=== PATIENT | female | born 1965 | race Caucasian/White ===

== ENCOUNTER 2017-12-08 10:54 | Day surgery (SDC) | payer MEDICARE, OTHER ==
[~2017-12-08] VITALS: Ht 172.7 cm; Wt 170.2 kg
[~2017-12-08 10:54] MED LIST: ALBU3IS; ALBU90OI; ALBU90OI6 INH; ATOR10 PO; ATOR40TA PO; B-12500 MCG PO; BENZ100A PO; BISA10S PO; BUDE6HFA; BUDE6HFA INH; Bactrim Ds Tab1 EACH PO; Coumadin10 MG; Coumadin7.5 MG PO; DICL25ER TOP; DOCU100 PO; FOLI1 PO; FURO20 PO; FURO40; GABA300; GABA300 PO; HYDCHL25 PO; Isosorbide Mono30 MG PO; LISI20 PO; METF500; METO25 PO; METO50; Micro-K10 MEQ PO; POTCHL10ER PO; Prednisone20 MG PO; QVAR7.3 G1 IH; ROPI.25; TIOT18; TIOT18 INH; TORS10; TRAM50 PO; TRAZ50 PO; VITB2 PO; Veetids 500500 MG PO; WARF10 PO; WARF7.5 PO; [UNRECOGNIZED DRUG - REMARK]
== END 2017-12-08 12:57 | disposition home or self-care (01) ==
LOC: ORSCSDS 10:54
PROVIDERS: Orthopaedic Surgery
PROC: 01N50ZZ Release Median Nerve, Open Approach (ICD-10-PCS; principal; 2017-12-08 12:30)
DX: G56.03 Carpal tunnel syndrome, bilateral upper limbs (principal); I48.0 Paroxysmal atrial fibrillation; I25.10 Atherosclerotic heart disease of native coronary artery without angina pectoris; J44.9 Chronic obstructive pulmonary disease, unspecified; G47.33 Obstructive sleep apnea (adult) (pediatric); Z87.891 Personal history of nicotine dependence; E11.9 Type 2 diabetes mellitus without complications; E66.01 Morbid (severe) obesity due to excess calories; Z68.43 Body mass index [BMI] 50.0-59.9, adult; Z79.01 Long term (current) use of anticoagulants; Z79.899 Other long term (current) drug therapy
CPT/HCPCS: 82947; J0690; J1885; J2250; J3010; J7120

== ENCOUNTER 2018-03-30 10:06 | Emergency (ER) | payer MEDICARE, OTHER ==
[~2018-03-30] VITALS: Ht 172.7 cm; Wt 172.4 kg
[2018-03-30] MEDS ORDERED: METF500C PO (10:33)
[2018-03-30] MEDS ORDERED: Ultram50 MG PO (11:13)
[2018-03-30] MEDS ORDERED: Crutch1 EACH MISC (11:15)
== END 2018-03-30 11:23 | disposition home or self-care (01) ==
LOC: ER 10:06
DX: S80.02XA Contusion of left knee, initial encounter (principal); J45.909 Unspecified asthma, uncomplicated; I11.0 Hypertensive heart disease with heart failure; I50.30 Unspecified diastolic (congestive) heart failure; I48.91 Unspecified atrial fibrillation; Z79.899 Other long term (current) drug therapy; Z79.01 Long term (current) use of anticoagulants; Z79.84 Long term (current) use of oral hypoglycemic drugs; Z79.51 Long term (current) use of inhaled steroids; Z87.891 Personal history of nicotine dependence; W01.0XXA Fall on same level from slipping, tripping and stumbling without subsequent striking against object, initial encounter
CPT/HCPCS: 73564; 99283

== ENCOUNTER → 2020-05-10 | Outpatient (CLI) | payer MEDICARE, OTHER ==
[~2020-05-10] MED LIST changes: +B-1100 M1 PO; -Coumadin10 MG; +Crutch1 EACH MISC; -FURO40; +FURO40 PO; -GABA300; +METF500C PO; -METO50; +METO50 PO; +Ultram50 MG PO; +VICTOZA 2-0.6 MG/0.1 SC; +WARF6 PO
== END | disposition home or self-care (01) ==
LOC: LAB 08:30 → LAB SHORT 08:30
DX: S91.301D Unspecified open wound, right foot, subsequent encounter (principal)
CPT/HCPCS: 87070; 87205

== ENCOUNTER → 2021-04-26 | Outpatient (CLI) | payer MEDICARE, OTHER | END | disposition home or self-care (01) | LOC: LAB 15:56 → LAB SHORT 15:56 | DX: E11.621 Type 2 diabetes mellitus with foot ulcer (principal); L98.499 Non-pressure chronic ulcer of skin of other sites with unspecified severity | CPT/HCPCS: 87070; 87075; 87205 ==

== ENCOUNTER → 2021-12-24 | Outpatient (CLI) | payer MEDICARE, OTHER ==
[2021-12-25 12:44] LABS: Creatinine Urine 66.6 mg/dL (27.00-270.00); Microalbumin, Urine Quant. 11.6 mg/L (0.000-20.000); Protein, Urine Quantitative 16.7 mg/dL (0.0-11.9)
== END | disposition home or self-care (01) ==
LOC: LAB SHORT 16:30
PROVIDERS: Internal Medicine Nephrology
DX: N18.4 Chronic kidney disease, stage 4 (severe) (principal); D63.1 Anemia in chronic kidney disease; N25.81 Secondary hyperparathyroidism of renal origin; E55.9 Vitamin D deficiency, unspecified; E78.00 Pure hypercholesterolemia, unspecified; D50.9 Iron deficiency anemia, unspecified; D52.8 Other folate deficiency anemias; D51.8 Other vitamin B12 deficiency anemias; R76.9 Abnormal immunological finding in serum, unspecified; R94.5 Abnormal results of liver function studies; R94.6 Abnormal results of thyroid function studies
CPT/HCPCS: 81050; 82043; 82570; 84156

== ENCOUNTER 2022-04-18 08:14 | Inpatient (IN) | payer MEDICARE, OTHER ==
[~2022-04-18] VITALS: Ht 175.3 cm; Wt 156.3 kg
[~2022-04-18 08:14] MED LIST changes: +METO100 PO; -METO50 PO; -POTCHL10ER PO; +POTCHL20ER PO
[2022-04-18 08:58] LABS: BASOPHILS ABSOLUTE AUTO 0.02 K/mm3 (0.00-0.23); BASOPHILS PERCENT AUTO 0 % (0-2); EOSINOPHILS ABSOLUTE AUTO 0.03 K/mm3 (0.00-0.68); EOSINOPHILS PERCENT AUTO 0 % (0-6); Hemoglobin 11.3 g/dL (11.5-16.0); IMMATURE GRAN ABSOLUTE AUTO 0.06 K/mm3 (0.00-0.10); IMMATURE GRAN PERCENT AUTO 1 % (0-1); LYMPHOCYTES ABSOLUTE AUTO 0.44 K/mm3 (0.84-5.20); LYMPHOCYTES PERCENT AUTO 4 % (21-46); MONOCYTES ABSOLUTE AUTO 0.55 K/mm3 (0.16-1.47); MONOCYTES PERCENT AUTO 4 % (4-13); Mean Corpuscular HGB Conc 34.2 g/dL (31.5-36.5); Mean Corpuscular Volume 91 fL (80-100); Mean Platelet Volume 11.1 fL (9.1-12.4); NEUTROPHILS ABSOLUTE AUTO 11.42 K/mm3 (1.96-9.15); NEUTROPHILS PERCENT AUTO 91 % (41-73); Platelet Count 173 K/mm3 (150-400); RDW Coefficient Variation 14.6 % (11.7-14.2); RDW Standard Deviation 48.4 fL (35.1-46.3); Red Blood Cell Count 3.64 M/mm3 (3.80-5.20); White Blood Cell Count 12.52 K/mm3 (4.00-11.30)
[2022-04-18 09:20] LABS: Albumin, Blood 2.9 g/dL (3.4-5.0); Albumin/Globulin Ratio 0.7 (0.8-1.8); Bilirubin, Total 0.4 mg/dL (0.1-1.0); Bun/Creatinine Ratio 15.6 (12.0-20.0); Calcium, Blood 8.4 mg/dL (8.5-10.1); Creatinine, Blood 2.18 mg/dL (0.40-1.00); Globulin, Blood 4.2 g/dL (2.2-4.0); Potassium, Blood 4.6 mmol/L (3.5-5.5); Total Protein, Blood 7.1 g/dL (6.4-8.2)
[2022-04-18] MEDS ORDERED: ELIQUIS5 M2 PO (10:11)
[2022-04-18 11:34] LABS: Source, Urine Clean Catch
[2022-04-18 11:43] LABS: Appearance, Urine Clear (Clear); Bilirubin, Urine Neg (Neg); Blood, Urine Neg (Neg); Color, Urine Yellow (P-Yellow); Glucose Qualitative, Urine Neg (Neg); Ketones, Urine Neg (Neg); Leukocyte Esterase, Urine Neg (Neg); Nitrite, Urine Neg (Neg); Protein, Urine Neg (Neg); Urobilinogen, Urine NORM (Normal)
[2022-04-18 14:47] LABS: International Normalized Ratio 1.48; Prothrombin Time Results 15.1 Sec (9.7-11.5)
[2022-04-18 14:48] LABS: U Amphetamine Screen Not Detected; U Barbituate Screen Not Detected; U Benzodiazapine Screen Not Detected; U Buprenorphine Screen Not Detected; U Cannabinoids Screen Not Detected; U Cocaine Screen Not Detected; U Methadone Screen Not Detected; U Methamphetamine Screen Not Detected; U Opiates Screen Not Detected; U Oxycodone Screen Not Detected; U Phencyclidine Screen Not Detected; U Propoxyphene Screen Not Detected
[2022-04-18] MEDS ORDERED: LYRICA20 MG/1 ML PO (17:54)
--- NOTE | 2022-04-18 18:16 | NUR ---
ASSUMPTION OF CARE RECEIVED REPORT FROM TOMEKA KOENIG IN ED AT 1657, PATIENT ARRIVED TO UNIT AT 1737 VIA GURNEY. 5 PERSON TRANSFER TO BED. PATIENT A/O, STATING 8/10 SEVERE PAIN TO LOWER BACK THAT HAS BEEN CONSTANT SINCE LAST EVENING. PATIENT IS PLEASANT AND COOPERATIVE. SATS ABOVE 90% ON ROOM AIR, PATIENT STATED SHE WEARS CPAP AT NIGHT, RT NOTIFIED. HEART RATE STABLE WITH HYPOTENSION NOTED. MAP BELOW 65. IV BOLUS INFUSING. PICC ORDERED BY CARLEY LOWERY, BEING PLACED AT THIS TIME BY NONPROFIT FUNDRAISER STACEY. ORDERS REVIEWED, WILL TREAT PRESCRIBED AND REPORT TO ONCOMING RN.
[2022-04-19 03:59] LABS: BASOPHILS ABSOLUTE AUTO 0.02 K/mm3 (0.00-0.23); BASOPHILS PERCENT AUTO 0 % (0-2); EOSINOPHILS ABSOLUTE AUTO 0.08 K/mm3 (0.00-0.68); EOSINOPHILS PERCENT AUTO 1 % (0-6); Hematocrit 31.6 % (33.0-51.0); Hemoglobin 10.5 g/dL (11.5-16.0); IMMATURE GRAN ABSOLUTE AUTO 0.02 K/mm3 (0.00-0.10); IMMATURE GRAN PERCENT AUTO 0 % (0-1); LYMPHOCYTES ABSOLUTE AUTO 0.75 K/mm3 (0.84-5.20); LYMPHOCYTES PERCENT AUTO 8 % (21-46); MONOCYTES ABSOLUTE AUTO 0.75 K/mm3 (0.16-1.47); MONOCYTES PERCENT AUTO 8 % (4-13); Mean Corpuscular HGB 30.6 pg (26.0-34.0); Mean Corpuscular HGB Conc 33.2 g/dL (31.5-36.5); Mean Corpuscular Volume 92 fL (80-100); Mean Platelet Volume 11.4 fL (9.1-12.4); NEUTROPHILS PERCENT AUTO 82 % (41-73); Platelet Count 130 K/mm3 (150-400); RDW Coefficient Variation 15.3 % (11.7-14.2); RDW Standard Deviation 51.5 fL (35.1-46.3); Red Blood Cell Count 3.43 M/mm3 (3.80-5.20); White Blood Cell Count 9.12 K/mm3 (4.00-11.30)
[2022-04-19 04:16] LABS: Alanine Aminotransfer (ALT/SGP 17 U/L (12-78); Albumin, Blood 2.7 g/dL (3.4-5.0); Albumin/Globulin Ratio 0.7 (0.8-1.8); Alk Phos 77 U/L (50-136); Anion Gap 7 mmol/L (6-16); Aspartate Aminotrans (AST/SGOT 98 U/L (12-37); Bilirubin, Total 0.4 mg/dL (0.1-1.0); Blood Urea Nitrogen 35 mg/dL (8-24); Bun/Creatinine Ratio 15.4 (12.0-20.0); CO2, Blood 26 mmol/L (21-32); Chloride, Blood 105 mmol/L (98-108); Creatinine, Blood 2.27 mg/dL (0.40-1.00); Glomerular Filtration Rate 25 (60-); Glucose, Blood 157 mg/dL (70-99); Sodium, Blood 138 mmol/L (136-145); Total Protein, Blood 6.7 g/dL (6.4-8.2); Vancomycin, Random 15.8 ug/mL
--- NOTE | 2022-04-19 05:25 | NUR ---
SHIFT SUMMARY: PT. WAS AWAKE AND ALERT AND ABLE TO APPROPRIATELY ANSWER ALL ORIENTATION QUESTIONS. SHE HAS BEEN ABLE TO COME DOWN ON HER LEVOPHED FROM 5 TO 2 THROUGHOUT THE NIGHT AND HAS MAINTAINED A MAP ABOVE 65. HR IS SINUS ANUEL IN THE 60S-70S ALL NIGHT. PT. IS SATTING WELL ON CPAP WHILE SLEEPING. PT. RECIEVED 50 TOTAL MCGS OF FENT. FOR PAIN TONIGHT WHICH SHE SAID WAS IN HER LOWER BACK, NECK, AND RADIATES INTO JAW AND HEAD. PT. WAS MEDICATED PER EMAR THIS AM AND IS NOW RESTING COMFORTABLY IN BED AT THIS TIME.
--- NOTE | 2022-04-19 08:31 | NUR ---
ASSUMPTION OF CARE RECEIVED REPORT FROM PREVIOUS SHIFT RN AT 0705, ASSUMED CARE OF PATIENT. PATIENT IN BED WITH EYES CLOSED, CPAP IN PLACE. EASILY AWAKENS, AT 0745 PATIENT WITH COMPLAINTS OF HEADACHE 05/24, NOTIFIED DR. PENA AT 0800. ORDERS RECEIVED FOR TYLENOL, ADMINISTERED CHARTED. BREAKFAST TRAY PROVIDED, PATIENT REQUESTING TO REST LONGER. VITALS STABLE, LEVOPHED CURRENTLY OFF AT THIS TIME. TAI PATENT AND DRAINING. WILL CONTINUE TO REVIEW ORDERS AND TREAT PRESCRIBED.
--- NOTE | 2022-04-19 11:40 | NUR ---
OUT OF ROOM TO MRI AT 1135. PHYSICAL THERAPY EVALUATED AND WORKED WITH PATIENT. VITALS STABLE AT TIME OF MRI.
--- NOTE | 2022-04-19 12:40 | NUR ---
MRI UNABLE TO OBTAIN MRI. RECOMMENDED MRI AT A DIFFERENT LOCATION. NOTIFIED DR. SANDHU, STATED HE WOULD CHANGE ORDERS TO CT. AWAITING ORDERS. PATIENT UPDATED.
--- NOTE | 2022-04-19 15:40 | NUR ---
CT PATIENT OUT OF ROOM TO CT AT 1530
--- NOTE | 2022-04-19 17:37 | NUR ---
SHIFT SUMMARY PATIENT ALERT, PAIN REPORTED IN HEAD AND BACK. MEDICATED CHARTED. PATIENT WORKED WITH PHYSICAL THERAPY, DANGLED AT BED AND STANDBY ASSIST TO WHEELCHAIR TO CT. STEADY GAIT AND TOLERATED WELL. 2L 02 VIA NC APPLIED IN AFTERNOON, DUE TO SATS IN MID 80'S ON ROOM AIR. CURRENTLY ABOVE 95%. HEART RATE AND B/P STABLE. LEVOPHED REMAINS OFF. TOLERATING PO INTAKE WELL. TAI PATENT AND DRAINING CLEAR, YELLOW URINE. STATUS CHANGED FROM ICU TO MEDICAL. IV FLUIDS AND ANTIBIOTICS CONTINUE. WILL REPORT TO ONCOMING RN.
[2022-04-20 04:26] LABS: BASOPHILS ABSOLUTE AUTO 0.01 K/mm3 (0.00-0.23); BASOPHILS PERCENT AUTO 0 % (0-2); EOSINOPHILS ABSOLUTE AUTO 0.08 K/mm3 (0.00-0.68); EOSINOPHILS PERCENT AUTO 1 % (0-6); Hematocrit 27.7 % (33.0-51.0); Hemoglobin 9.1 g/dL (11.5-16.0); IMMATURE GRAN ABSOLUTE AUTO 0.02 K/mm3 (0.00-0.10); IMMATURE GRAN PERCENT AUTO 0 % (0-1); LYMPHOCYTES ABSOLUTE AUTO 0.91 K/mm3 (0.84-5.20); LYMPHOCYTES PERCENT AUTO 11 % (21-46); MONOCYTES ABSOLUTE AUTO 0.82 K/mm3 (0.16-1.47); MONOCYTES PERCENT AUTO 10 % (4-13); Mean Corpuscular HGB 30.6 pg (26.0-34.0); Mean Corpuscular HGB Conc 32.9 g/dL (31.5-36.5); Mean Corpuscular Volume 93 fL (80-100); Mean Platelet Volume 11.8 fL (9.1-12.4); NEUTROPHILS ABSOLUTE AUTO 6.35 K/mm3 (1.96-9.15); NEUTROPHILS PERCENT AUTO 78 % (41-73); Platelet Count 143 K/mm3 (150-400); Red Blood Cell Count 2.97 M/mm3 (3.80-5.20); White Blood Cell Count 8.19 K/mm3 (4.00-11.30)
[2022-04-20 04:46] LABS: Albumin, Blood 2.3 g/dL (3.4-5.0); Anion Gap 6 mmol/L (6-16); Blood Urea Nitrogen 25 mg/dL (8-24); Bun/Creatinine Ratio 14.5 (12.0-20.0); CO2, Blood 24 mmol/L (21-32); Calcium, Blood 8.2 mg/dL (8.5-10.1); Chloride, Blood 107 mmol/L (98-108); Creatinine, Blood 1.73 mg/dL (0.40-1.00); Glomerular Filtration Rate 34 (60-); Glucose, Blood 153 mg/dL (70-99); Phosphorus, Blood 2.9 mg/dL (2.5-4.9); Potassium, Blood 4.8 mmol/L (3.5-5.5); Sodium, Blood 137 mmol/L (136-145)
--- NOTE | 2022-04-20 05:51 | NUR ---
SHIFT SUMMARY: PT. IS STABLE OVERNIGHT WITH HER ONLY COMPLAINT BEING A HEADACHE. TYLENOL AND FENT WERE GIVEN, BUT WERE NOT HELPFUL. HOSPITALIST CALLED AND A ONE TIME ORDER OF IMITREX WAS GIVEN. PT. HAD NO COMPLAINTS SINCE. PT. SLEPT WELL ON CPAP ALL NIGHT, MAINTAINING SATS ABOVE 97%, BP AND HR WERE WNL AND SOME SHORT EPISODES OF AFIB WERE NOTED THROUGHOUT THE NIGHT. PT. ANSWERS QUESTIONS APPROPRIATELY AND HAS NO COMPLANTS AT THIS TIME. TAI IS STILL IN PLACE, 1250 OF URINE OUTPUT OVERNIGHT. PT. RESTING COMFORTABLY AT THIS TIME.
--- NOTE | 2022-04-20 07:57 | NUR ---
ASSUMPTION OF CARE RECEIVED REPORT FROM YULIANA KOENIG AT 0700, ASSUMED CARE OF PATIENT. PATIENT IN BED WITH CPAP ON WITH 2L 02 BLEED IN. EASILY AWOKE, DENIED DISCOMFORTS AT THIS TIME. VITALS CURRENTLY STABLE. INDEPENDENTLY REPOSITIONS SELF IN BED, TAI PATENT AND DRAINING CLEAR, YELLOW URINE. CALL LIGHT IN REACH, WILL REVIEW ORDERS AND TREAT PRESCRIBED.
--- NOTE | 2022-04-20 18:22 | NUR ---
SHIFT SUMMARY PATIENT ALERT AND ORIENTED. PAIN CONTINUES IN HIP AND BACK REQUIRING ONE DOSE OF FENTANYL. REPORTS OF HEADACHE, RECEIVED ORDER FOR IMITREX FROM DR. RAO. TYLENOL GIVEN WELL. CURRENTLY HEADACHE IS 3/10 WITH HIP PAIN COMFORTABLE. PATIENT WORE CPAP WITH 2L 02 BLEED IN WHILE ASLEEP AND MAINTAINED SATS ABOVE 90% ON ROOM AIR WHILE AWAKE. TOLERATING PO INTAKE WELL. STOOL SOFTNER GIVEN DUE TO NO BM FOR OVER 3 DAYS. TAI CATHETER DC'D. BEDBATH GIVEN WHILE PATIENT WAS UP IN CHAIR. IV FLUIDS DC'D, INSULIN DC'D PER DR. RAO. IV ANTIBIOTICS CONTINUE. PATIENT IN BED WITH CALL LIGHT IN REACH. WILL REPORT TO ONCOMING RN.
[2022-04-20 20:32] LABS: Vancomycin, Trough 24.9 ug/mL (5.0-10.0)
[2022-04-21 02:41] LABS: Vancomycin, Random 21.2 ug/mL
[2022-04-21 04:02] LABS: BASOPHILS ABSOLUTE AUTO 0.03 K/mm3 (0.00-0.23); BASOPHILS PERCENT AUTO 0 % (0-2); EOSINOPHILS ABSOLUTE AUTO 0.18 K/mm3 (0.00-0.68); EOSINOPHILS PERCENT AUTO 2 % (0-6); Hematocrit 28.2 % (33.0-51.0); Hemoglobin 9.5 g/dL (11.5-16.0); IMMATURE GRAN ABSOLUTE AUTO 0.04 K/mm3 (0.00-0.10); IMMATURE GRAN PERCENT AUTO 1 % (0-1); LYMPHOCYTES ABSOLUTE AUTO 1.33 K/mm3 (0.84-5.20); LYMPHOCYTES PERCENT AUTO 17 % (21-46); MONOCYTES PERCENT AUTO 12 % (4-13); Mean Corpuscular HGB 31.1 pg (26.0-34.0); Mean Corpuscular HGB Conc 33.7 g/dL (31.5-36.5); Mean Corpuscular Volume 93 fL (80-100); Mean Platelet Volume 11.1 fL (9.1-12.4); NEUTROPHILS ABSOLUTE AUTO 5.31 K/mm3 (1.96-9.15); NEUTROPHILS PERCENT AUTO 68 % (41-73); Platelet Count 132 K/mm3 (150-400); RDW Coefficient Variation 14.9 % (11.7-14.2); RDW Standard Deviation 50.2 fL (35.1-46.3); Red Blood Cell Count 3.05 M/mm3 (3.80-5.20); White Blood Cell Count 7.79 K/mm3 (4.00-11.30)
[2022-04-21 04:26] LABS: Albumin, Blood 2.3 g/dL (3.4-5.0); Anion Gap 5 mmol/L (6-16); Blood Urea Nitrogen 23 mg/dL (8-24); CO2, Blood 24 mmol/L (21-32); Calcium, Blood 8.6 mg/dL (8.5-10.1); Chloride, Blood 110 mmol/L (98-108); Creatinine, Blood 1.44 mg/dL (0.40-1.00); Glomerular Filtration Rate 42 (60-); Glucose, Blood 128 mg/dL (70-99); Phosphorus, Blood 3.1 mg/dL (2.5-4.9); Potassium, Blood 4.4 mmol/L (3.5-5.5); Sodium, Blood 139 mmol/L (136-145)
--- NOTE | 2022-04-21 05:47 | NUR ---
SHIFT SUMMARY: PT. MAINTAINED BP, HR, AND O2 ALL WNL THROUGHOUT THE NIGHT, AND STAYED IN NSR. PT. SLEPT COMFORTABLY ON CPAP AND HER ONLY COMPLAINT WAS A HEADACHE. IMITREX AND TYLENOL WERE GIVEN FOR PAIN, PT. REQUESTED NO FENTANYL. TAI CATHETER WAS REMOVED BEFORE 1900 AND PT. WAS ABLE TO VOID AT BEDSIDE WITH ONE ASSIST LAST NIGHT. VANC TROUGH WAS DRAWN AT 2000 AND CAME BACK CRITICALLY HIGH SO 2100 DOSE OF VANC WAS HELD PER PHARMACY. PT. IS RESTING COMFORTABLY IN BED AND HAS NO COMPLAINTS AT THIS TIME.
--- NOTE | 2022-04-21 09:02 | NUR ---
ASSUMED CARE REPORT FROM MANDA KOENIG AT 0700. PT RESTING IN BED. DENIES NEEDS. STATES OATES RESOLVED. CPAP IN PLACE FOR SLEEP, REMOVED FOR BREAKFAST. LUNGS DIM IN BASES. SPEAKING IN FULL SENTANCES. MARIIA. INDEPENDENT IN ROOM. A&OX 4. WILL CONTINUE TO MONITOR.
--- NOTE | 2022-04-21 18:21 | NUR ---
SHIFT SUMMARY NO ACUTE CHANGES THIS SHIFT. STATUS CHANGED TO MED s TELE. C/O OATES THIS SHIFT, RELIEVED c TYLENOL. STATES BACK AND HIP PAIN RESOLVED. UP TO CHAIR FOR SEVERAL HOURS. WORKED c PT/OT, TOLERATED WELL. STANDBY ASSIST TO TOILET IN ROOM. VSS. CALLED OUTPT MRI TO MOVE OUTPATIENT MRI SCHEDULE UP IF POSSIBLE, UNABLE, PT WILL KEEP 06/[address] RAO TO DISCUSS POSSIBILITY OF TRANSPORT TO OUTPT FACILITY FOR MRI DURING THIS ADMISSION. AWAITING TO DISCUSS c PT. PICC TO RUE, DRESSING C/D/I. WILL CONTINUE TO MONITOR UNTIL REPORT TO ONCOMING NURSE.
--- NOTE | 2022-04-21 19:39 | NUR ---
ASSUMED CARE OF PT AT 1900, SHE IS RESTING QUIETLY RECLINING IN BED AND WATCHING TV. ADMITS TO SLIGHT HEADACHE AT THIS TIME, IMITREX ADMIN PER REQUEST. DENIES OTHER NEEDS, WILL CONT TO MONITOR.
[2022-04-22 04:03] LABS: BASOPHILS ABSOLUTE AUTO 0.03 K/mm3 (0.00-0.23); BASOPHILS PERCENT AUTO 0 % (0-2); EOSINOPHILS ABSOLUTE AUTO 0.22 K/mm3 (0.00-0.68); EOSINOPHILS PERCENT AUTO 3 % (0-6); Hematocrit 30.4 % (33.0-51.0); Hemoglobin 10.1 g/dL (11.5-16.0); IMMATURE GRAN ABSOLUTE AUTO 0.05 K/mm3 (0.00-0.10); IMMATURE GRAN PERCENT AUTO 1 % (0-1); LYMPHOCYTES ABSOLUTE AUTO 1.26 K/mm3 (0.84-5.20); LYMPHOCYTES PERCENT AUTO 18 % (21-46); MONOCYTES ABSOLUTE AUTO 0.67 K/mm3 (0.16-1.47); MONOCYTES PERCENT AUTO 10 % (4-13); Mean Corpuscular HGB 30.8 pg (26.0-34.0); Mean Corpuscular HGB Conc 33.2 g/dL (31.5-36.5); Mean Corpuscular Volume 93 fL (80-100); Mean Platelet Volume 10.8 fL (9.1-12.4); NEUTROPHILS PERCENT AUTO 68 % (41-73); Platelet Count 145 K/mm3 (150-400); RDW Coefficient Variation 14.7 % (11.7-14.2); RDW Standard Deviation 49.2 fL (35.1-46.3); Red Blood Cell Count 3.28 M/mm3 (3.80-5.20); White Blood Cell Count 6.93 K/mm3 (4.00-11.30)
[2022-04-22 04:26] LABS: Albumin, Blood 2.4 g/dL (3.4-5.0); Anion Gap 5 mmol/L (6-16); Blood Urea Nitrogen 22 mg/dL (8-24); Bun/Creatinine Ratio 16.8 (12.0-20.0); CO2, Blood 26 mmol/L (21-32); Calcium, Blood 8.9 mg/dL (8.5-10.1); Chloride, Blood 110 mmol/L (98-108); Creatinine, Blood 1.31 mg/dL (0.40-1.00); Glomerular Filtration Rate 48 (60-); Glucose, Blood 120 mg/dL (70-99); Phosphorus, Blood 3.2 mg/dL (2.5-4.9); Potassium, Blood 4.4 mmol/L (3.5-5.5); Sodium, Blood 141 mmol/L (136-145)
--- NOTE | 2022-04-22 06:22 | NUR ---
PT RESTS QUIETLY THROUGHOUT SHIFT, PAIN IS REPORTED A DULL THROBBING HEADACHE "RIGHT BEHIND MY EYES" HIGHEST PAIN SCORE GIVEN THIS SHIFT WAS 3/10, PAIN WAS CONTROLLED WITH IMITREX PO ADMINISTERED ONCE PRIOR TO HS AND TYLENOL PO ADMINISTERED ONCE THIS AM. SHE GETS UP TO TOILET IN ROOM WITH 1 PERSON MINIMAL ASSIST AND TOLERATES WELL. PT DID INITIALLY REPORT THAT SHE HADN'T HAD A BOWEL MOVEMENT SINCE APRIL 12 HOWEVER SHE DID HAVE 2 EXTRA LARGE FORMED HARD BOWEL MOVMENTS THIS SHIFT. 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 OTHERWISE NO ACUTE CHANGES THROUGHOUT NOC.
--- NOTE | 2022-04-22 17:48 | NUR ---
SUMMARY PT A/O X4. C/O OATES T/O THE DAY. IMITREX AND TYLENOL GIVEN WHICH IS CONTROLING IT. PT OOB TO CHAIR MOST OF THE DAY. MINIMAL ASSIST. PT HAD CT OF HEAD DONE TODAY AND BC DRAWN TRYING TO FIND SOURCE OF INFECTION. AFEBRILE. PT NOTICED TODAY SHE HAS A CALLUS ON BALL OF R FOOT. CALLUS IS DISCOLORED BROWN. PT HAS NO FEELING IN FEET FROM NEUROPATHY. CALLUS IS PEELING OFF AND DOES NOT APPEAR TO BE NEW. PT STATES SHE HAS IN THE PAST STEPPED ON A CARPET NAIL AND DID NOT KNOW IT WAS THERE DUE TO NEUROPATHY. LOOKS IF THERE IS A CALLUS FORMING ON BALL OF L FOOT WELL BUT IS VERY SMALL. PLACED WOUND CONSULT SINCE PT IS DIABETIC. CLEANSED CALLUS AREA AND PLACED STERILE GAUZE WITH TEGADERM OVER IT. NO OTHER ACUTE CHANGES THIS SHIFT. PT WILL BE TRANSFERING TO MEDICAL FLOOR RM [id number].
[2022-04-23 05:18] LABS: BASOPHILS ABSOLUTE AUTO 0.02 K/mm3 (0.00-0.23); BASOPHILS PERCENT AUTO 0 % (0-2); EOSINOPHILS ABSOLUTE AUTO 0.23 K/mm3 (0.00-0.68); EOSINOPHILS PERCENT AUTO 3 % (0-6); Hematocrit 28.1 % (33.0-51.0); Hemoglobin 9.2 g/dL (11.5-16.0); IMMATURE GRAN ABSOLUTE AUTO 0.06 K/mm3 (0.00-0.10); IMMATURE GRAN PERCENT AUTO 1 % (0-1); LYMPHOCYTES ABSOLUTE AUTO 1.36 K/mm3 (0.84-5.20); LYMPHOCYTES PERCENT AUTO 20 % (21-46); MONOCYTES ABSOLUTE AUTO 0.52 K/mm3 (0.16-1.47); MONOCYTES PERCENT AUTO 8 % (4-13); Mean Corpuscular HGB 30.5 pg (26.0-34.0); Mean Corpuscular HGB Conc 32.7 g/dL (31.5-36.5); Mean Corpuscular Volume 93 fL (80-100); NEUTROPHILS ABSOLUTE AUTO 4.54 K/mm3 (1.96-9.15); NEUTROPHILS PERCENT AUTO 68 % (41-73); Platelet Count 159 K/mm3 (150-400); RDW Coefficient Variation 14.8 % (11.7-14.2); RDW Standard Deviation 50.4 fL (35.1-46.3); Red Blood Cell Count 3.02 M/mm3 (3.80-5.20); White Blood Cell Count 6.73 K/mm3 (4.00-11.30)
[2022-04-23 05:48] LABS: Albumin, Blood 2.2 g/dL (3.4-5.0); Anion Gap 3 mmol/L (6-16); Blood Urea Nitrogen 20 mg/dL (8-24); Bun/Creatinine Ratio 18.5 (12.0-20.0); CO2, Blood 28 mmol/L (21-32); Calcium, Blood 8.5 mg/dL (8.5-10.1); Chloride, Blood 110 mmol/L (98-108); Creatinine, Blood 1.08 mg/dL (0.40-1.00); Glomerular Filtration Rate 60 (60-); Glucose, Blood 119 mg/dL (70-99); Phosphorus, Blood 3.7 mg/dL (2.5-4.9); Potassium, Blood 4.4 mmol/L (3.5-5.5); Sodium, Blood 141 mmol/L (136-145)
--- NOTE | 2022-04-23 07:30 | NUR ---
ASSUMED CARE: PT RESTING QUIETLY AT THIS TIME. CPAP IN PLACE. NO ACUTE NEEDS OR CONCERNS AT THIS TIME.
--- NOTE | 2022-04-23 08:59 | NUR ---
WOUND ASSESSMENT AND PHOTO IN HARD CHART. ORDERS IN MEDITECH
--- NOTE | 2022-04-23 10:00 | NUR ---
PT EXPRESSED CONCERN REGARDING BLOOD PRESSURE. CALL TO TO DISCUSS. DR STATES SHE WILL REVIEW FURTHER
[2022-04-23] MEDS ORDERED: Prinivil10 MG PO (10:07)
--- NOTE | 2022-04-23 12:06 | NUR ---
CALL TO DR RAO TO LET HER KNOW OF PT'S BP AT LUNCH TIME CHECK. TO REVIEW PT'S HOME MEDS AND PLACE NEW ORDERS.
--- NOTE | 2022-04-23 17:34 | NUR ---
SHIFT SUMMARY: PT MEDICATED THREE TIMES THIS SHIFT FOR HEADACHE. DR COREA AWARE AND STATES THIS A SYMPTOM PT HAS BEEN HAVING THIS HOSPITAL STAY. HOME BP MEDS RESTARTED AND ADMINISTERED WITH IMPROVEMENT NOTED. POSSIBLE DC TOMORROW. NO FURTHER NEEDS OR CONCERNS AT THIS TIME.
[2022-04-23] MEDS ORDERED: PREG100 PO ×2 (22:22→22:23)
[2022-04-23] MEDS ORDERED: BREO ELLIPTA 21 EAC1 INH (22:28)
[2022-04-23] MEDS ORDERED: CALC.25 PO (22:53)
[2022-04-23] MEDS ORDERED: Naltrexone HCl50 MG PO (22:54)
[2022-04-23] MEDS ORDERED: WARF5 PO (22:55)
[2022-04-23] MEDS ORDERED: TRAM50 PO (22:56)
[2022-04-23] MEDS ORDERED: RAYALDEE30 MCG PO (22:57)
--- NOTE | 2022-04-24 03:49 | NUR ---
SUMMARY: PT A/OX4, IS INDEPENDENT IN ROOM AND CALLS APPROPRIATELY TO SPECIFY NEEDS. SHE DENIED NEEDING ADDITIONAL PAIN MEDS AND STATES OATES IS RESOLVED. IV ABX RECIEVED VIA R.UPPER ARM PICC THEN SL'D. PT TOLERATED CPAP T/O NOCTE W/CONT BIOX INTACT. SHE BEGAN SHIFT HYPERTENSIVE BUT BP IMPROVED AFTER RECIEVING HS SCHEDULED HOME MEDS. VSS/AFEBRILE, NO ACUTE CHANGES. POSSIBLE D/C TODAY. WCTM AND REPORT TO DAY RN.
[2022-04-24 06:04] LABS: BASOPHILS ABSOLUTE AUTO 0.03 K/mm3 (0.00-0.23); BASOPHILS PERCENT AUTO 0 % (0-2); EOSINOPHILS ABSOLUTE AUTO 0.21 K/mm3 (0.00-0.68); EOSINOPHILS PERCENT AUTO 3 % (0-6); Hematocrit 27.9 % (33.0-51.0); Hemoglobin 9.3 g/dL (11.5-16.0); IMMATURE GRAN PERCENT AUTO 1 % (0-1); LYMPHOCYTES ABSOLUTE AUTO 1.71 K/mm3 (0.84-5.20); LYMPHOCYTES PERCENT AUTO 22 % (21-46); MONOCYTES ABSOLUTE AUTO 0.58 K/mm3 (0.16-1.47); MONOCYTES PERCENT AUTO 7 % (4-13); Mean Corpuscular HGB 30.9 pg (26.0-34.0); Mean Corpuscular HGB Conc 33.3 g/dL (31.5-36.5); Mean Corpuscular Volume 93 fL (80-100); Mean Platelet Volume 10.9 fL (9.1-12.4); NEUTROPHILS ABSOLUTE AUTO 5.34 K/mm3 (1.96-9.15); NEUTROPHILS PERCENT AUTO 67 % (41-73); NRBC ABSOLUTE 0.02 K/mm3 (0.00-0.02); NRBC Auto 0.3 /100 WBC (0.0-0.2); Platelet Count 193 K/mm3 (150-400); RDW Standard Deviation 50.4 fL (35.1-46.3); Red Blood Cell Count 3.01 M/mm3 (3.80-5.20); White Blood Cell Count 7.97 K/mm3 (4.00-11.30)
[2022-04-24 06:27] LABS: Albumin, Blood 2.4 g/dL (3.4-5.0); Anion Gap 4 mmol/L (6-16); Blood Urea Nitrogen 21 mg/dL (8-24); Bun/Creatinine Ratio 17.1 (12.0-20.0); CO2, Blood 28 mmol/L (21-32); Calcium, Blood 8.5 mg/dL (8.5-10.1); Chloride, Blood 108 mmol/L (98-108); Creatinine, Blood 1.23 mg/dL (0.40-1.00); Glomerular Filtration Rate 51 (60-); Glucose, Blood 111 mg/dL (70-99); Phosphorus, Blood 4.2 mg/dL (2.5-4.9); Potassium, Blood 4.1 mmol/L (3.5-5.5); Sodium, Blood 140 mmol/L (136-145)
[2022-04-24] MEDS ORDERED: VISBIOME 112.51 EACH PO (11:56)
[2022-04-24] MEDS ORDERED: ACET325 PO (11:56)
[2022-04-24] MEDS ORDERED: BUTALB-ACETAMI1 EAC6 PO (11:57)
[2022-04-24] MEDS ORDERED: AMOCLA875 PO (11:57)
--- NOTE | 2022-04-24 14:20 | NUR ---
DISCHARGE SUMMARY PT AxOx4. PLEASANT AND COOPERATIVE WITH CARE. PT IS DISCHARGING HOME TODAY WITH FAMILY. PT WAS MEDICATED FOR HEADACHE PER EMAR WITH REPORTED RELIEF. PT WAS ALSO GIVEN DOSE OF IV ABX PRIOR TO DC. PT HAD WOUND CARE AND DRESSING CHANGE PERFORMED ON LLE FOOT PLANTAR. PT GIVEN DC INFO INCLUDING DC MEDICATION LIST, FOLLOW UP APPOINTMENTS AND HOME HEALTH REFERRAL. PT VERBALIZES UNDERSTANDING AND DENIES ANY FURTHER QUESTIONS AT THIS TIME. PT SAFELY ESCORTED OUT VIA WC WITH [employer].
== END 2022-04-24 14:33 | disposition home health service (06) | DRG 871 ==
LOC: ER 08:14 → ICUW 14:25 → PCU 14:25 → ICUW 17:06 → MEDS 04-22 19:29
PROVIDERS: Emergency Medicine; Family Medicine; Nurse Practitioner Acute Care; ADMIT Family Medicine
PROC: 02HV33Z Insertion of Infusion Device into Superior Vena Cava, Percutaneous Approach (ICD-10-PCS; principal; 2022-04-18)
PROC: 3E033XZ Introduction of Vasopressor into Peripheral Vein, Percutaneous Approach (ICD-10-PCS; 2022-04-18)
PROC: 3E03329 Introduction of Other Anti-infective into Peripheral Vein, Percutaneous Approach (ICD-10-PCS; 2022-04-18)
PROC: 5A09357 Assistance with Respiratory Ventilation, Less than 24 Consecutive Hours, Continuous Positive Airway Pressure (ICD-10-PCS; 2022-04-18)
DX: A41.9 Sepsis, unspecified organism (principal); G93.41 Metabolic encephalopathy; R65.21 Severe sepsis with septic shock; J18.9 Pneumonia, unspecified organism; N17.9 Acute kidney failure, unspecified; I13.0 Hypertensive heart and chronic kidney disease with heart failure and stage 1 through stage 4 chronic kidney disease, or unspecified chronic kidney disease; I50.32 Chronic diastolic (congestive) heart failure; Z68.41 Body mass index [BMI] 40.0-44.9, adult; J44.0 Chronic obstructive pulmonary disease with (acute) lower respiratory infection; Z20.822 Contact with and (suspected) exposure to COVID-19; I48.91 Unspecified atrial fibrillation; R51.9 Headache, unspecified; M54.50 Low back pain, unspecified; M47.815 Spondylosis without myelopathy or radiculopathy, thoracolumbar region; M51.36 Other intervertebral disc degeneration, lumbar region; E66.01 Morbid (severe) obesity due to excess calories; G47.33 Obstructive sleep apnea (adult) (pediatric); E11.22 Type 2 diabetes mellitus with diabetic chronic kidney disease; N18.9 Chronic kidney disease, unspecified; M19.90 Unspecified osteoarthritis, unspecified site; Z98.890 Other specified postprocedural states; Z79.01 Long term (current) use of anticoagulants; Z79.899 Other long term (current) drug therapy; Z99.81 Dependence on supplemental oxygen; Z87.891 Personal history of nicotine dependence; Z79.84 Long term (current) use of oral hypoglycemic drugs
CPT/HCPCS: 36415; 36569; 51702; 70450; 71045; 72128; 72131; 74174; 80053; 80069; 80202; 81003; 82947; 83605; 83880; 84145; 85025; 85610; 85651; 86140; 86850; 86900; 86901; 87040; 93005; 93010; 94640; 94660; 94664; 94762; 96374-59; 96375-59; 96376-59; 97110; 97162; 97530; 99285-25; A9270; C1751; J0295; J0692; J0696; J1885; J3010; J3370; J7030; J7060; J7120; Q9967

== ENCOUNTER → 2022-07-01 | Outpatient (CLI) | payer MEDICARE, OTHER ==
[~2022-07-01] MED LIST changes: +ACET325 PO; +AMOCLA875 PO; +BREO ELLIPTA 21 EAC1 INH; +BUTALB-ACETAMI1 EAC6 PO; +CALC.25 PO; +ELIQUIS5 M2 PO; +LYRICA20 MG/1 ML PO; +Naltrexone HCl50 MG PO; +PREG100 PO; +Prinivil10 MG PO; +RAYALDEE30 MCG PO; +VISBIOME 112.51 EACH PO; +WARF5 PO
[2022-07-02 15:10] LABS: HPV 16 Negative (Negative); HPV 18 Negative (Negative); HPV OTHER HR TYPES Negative (Negative)
== END | disposition home or self-care (01) ==
LOC: LAB 09:15 → RAD SHORT 09:15
PROVIDERS: Registered Nurse Community Health
DX: Z12.4 Encounter for screening for malignant neoplasm of cervix (principal)
CPT/HCPCS: 87624; G0123

== ENCOUNTER → 2023-09-29 | Outpatient (CLI) | payer MEDICARE, OTHER ==
[2023-09-29 12:39] LABS: Protein, Urine Quantitative 6.9 mg/dL (0.0-11.9)
[2023-09-29 12:43] LABS: Microalbumin, Urine Quant. <5.000 mg/L (0.000-20.000)
== END ==
LOC: LAB 08:30 → LAB SHORT 08:30
PROVIDERS: Internal Medicine Nephrology
DX: N18.30 Chronic kidney disease, stage 3 unspecified (principal); D63.1 Anemia in chronic kidney disease
CPT/HCPCS: 81050; 82043; 82570; 84156

== ENCOUNTER → 2024-01-04 | Outpatient (CLI) | payer MEDICARE, OTHER ==
[2024-01-06 22:10] LABS: IRON BIND.CAP.(TIBC) 375 ug/dL (250-450); IRON SATURATION 17 % (15-55); IRON, SERUM 64 ug/dL (27-159); UIBC 311 ug/dL (131-425)
[2024-01-11 13:08] LABS: FERRITIN 33 ng/mL (15-150)
== END ==
LOC: LAB 17:44 → LAB SHORT 17:44
PROVIDERS: Internal Medicine Hematology & Oncology
DX: D50.0 Iron deficiency anemia secondary to blood loss (chronic) (principal)
CPT/HCPCS: 82728; 83540; 83550

== ENCOUNTER 2024-05-13 17:16 | Emergency (ER) | payer MEDICARE, OTHER ==
[~2024-05-13] VITALS: Ht 172.7 cm; Wt 149.2 kg
[2024-05-13 17:34] VITALS: BP 131/74
== END 2024-05-13 19:15 | disposition home or self-care (01) ==
LOC: ER 17:16
DX: S92.311A Displaced fracture of first metatarsal bone, right foot, initial encounter for closed fracture (principal); I11.0 Hypertensive heart disease with heart failure; I50.32 Chronic diastolic (congestive) heart failure; E11.9 Type 2 diabetes mellitus without complications; G47.33 Obstructive sleep apnea (adult) (pediatric); J44.89 Other specified chronic obstructive pulmonary disease; I48.0 Paroxysmal atrial fibrillation; W22.03XA Walked into furniture, initial encounter; Z87.891 Personal history of nicotine dependence; Z79.84 Long term (current) use of oral hypoglycemic drugs; Z79.51 Long term (current) use of inhaled steroids; Z79.899 Other long term (current) drug therapy
CPT/HCPCS: 73630; 99283-25

== ENCOUNTER → 2024-06-06 | Outpatient (CLI) | payer MEDICARE, OTHER | LOC: LAB SHORT 18:26 → LAB 18:26 | DX: E11.21 Type 2 diabetes mellitus with diabetic nephropathy (principal); E11.40 Type 2 diabetes mellitus with diabetic neuropathy, unspecified; E11.42 Type 2 diabetes mellitus with diabetic polyneuropathy | CPT/HCPCS: 83036 ==

== ENCOUNTER → 2025-01-19 | Outpatient (CLI) | payer MEDICARE, OTHER | LOC: LAB SHORT 13:52 → LAB 13:52 | DX: L97.529 Non-pressure chronic ulcer of other part of left foot with unspecified severity (principal) | CPT/HCPCS: 87070; 87075; 87077; 87147; 87186; 87205 ==

== ENCOUNTER 2025-07-09 22:33 | Emergency (ER) | payer MEDICARE, OTHER ==
[~2025-07-09] VITALS: Ht 172.7 cm; Wt 151.5 kg
[2025-07-09] MEDS ORDERED: Ketorolac Tromethamine 15mg Vial IV ONE (22:40)
[2025-07-09] MEDS ORDERED: Albuterol 2.5 MG/3 ML VIAL INH ONE (22:50)
[2025-07-09 23:01] LABS: BASOPHILS ABSOLUTE AUTO 0.03 K/mm3 (0.00-0.23); BASOPHILS PERCENT AUTO 0 % (0-2); EOSINOPHILS ABSOLUTE AUTO 0.04 K/mm3 (0.00-0.68); EOSINOPHILS PERCENT AUTO 0 % (0-6); Hematocrit 41.7 % (33.0-51.0); Hemoglobin 13.8 g/dL (11.5-16.0); IMMATURE GRAN ABSOLUTE AUTO 0.07 K/mm3 (0.00-0.10); IMMATURE GRAN PERCENT AUTO 0 % (0-1); LYMPHOCYTES ABSOLUTE AUTO 1.03 K/mm3 (0.84-5.20); LYMPHOCYTES PERCENT AUTO 6 % (21-46); MONOCYTES ABSOLUTE AUTO 0.75 K/mm3 (0.16-1.47); MONOCYTES PERCENT AUTO 5 % (4-13); Mean Corpuscular HGB Conc 33.1 g/dL (31.5-36.5); Mean Corpuscular Volume 92 fL (80-100); NEUTROPHILS ABSOLUTE AUTO 14.67 K/mm3 (1.96-9.15); NEUTROPHILS PERCENT AUTO 89 % (41-73); NRBC ABSOLUTE 0.00 K/mm3 (0.00-0.02); NRBC Auto 0.0 /100 WBC (0.0-0.2); Platelet Count 154 K/mm3 (150-400); RDW Coefficient Variation 12.6 % (11.7-14.2); RDW Standard Deviation 42.6 fL (35.1-46.3)
[2025-07-09 23:21] LABS: Alanine Aminotransfer (ALT/SGP 18.0 U/L (12-78); Albumin, Blood 3.5 g/dL (3.4-5.0); Albumin/Globulin Ratio 0.9 (0.8-1.8); Anion Gap 8.0 mmol/L (3-11); Aspartate Aminotrans (AST/SGOT 33.0 U/L (12-37); Bilirubin, Total 0.3 mg/dL (0.1-1.0); Blood Urea Nitrogen 28.0 mg/dL (8-24); CO2, Blood 28.0 mmol/L (21-32); Calcium, Blood 9.0 mg/dL (8.5-10.1); Chloride, Blood 104.0 mmol/L (98-108); Creatinine, Blood 1.52 mg/dL (0.40-1.00); Globulin, Blood 3.8 g/dL (2.2-4.0); Glucose, Blood 132.0 mg/dL (70-99); Magnesium, Blood 2.0 mg/dL (1.6-2.4); Potassium, Blood 4.4 mmol/L (3.5-5.5); Sodium, Blood 136.0 mmol/L (136-145); Total Protein, Blood 7.3 g/dL (6.4-8.2)
[2025-07-09 23:39] LABS: Influenza A, PCR NEGATIVE (NEGATIVE); Influenza B, PCR NEGATIVE (NEGATIVE); Resp Syncytial Virus, PCR NEGATIVE (NEGATIVE); SARS-Cov-2 (COVID-19) PCR, MMC NEGATIVE (NEGATIVE)
[2025-07-09] MEDS ORDERED: DOXY100 PO (23:52)
[2025-07-10 00:20] VITALS: BP 114/59
== END 2025-07-10 00:23 | disposition home or self-care (01) ==
LOC: ER 22:33
PROVIDERS: Student in an Organized Health Care Education/Training Program
DX: J44.0 Chronic obstructive pulmonary disease with (acute) lower respiratory infection (principal); J18.9 Pneumonia, unspecified organism; J44.1 Chronic obstructive pulmonary disease with (acute) exacerbation; Z79.01 Long term (current) use of anticoagulants; Z79.899 Other long term (current) drug therapy; I10 Essential (primary) hypertension; J45.909 Unspecified asthma, uncomplicated; E11.9 Type 2 diabetes mellitus without complications; G47.33 Obstructive sleep apnea (adult) (pediatric); Z87.891 Personal history of nicotine dependence
CPT/HCPCS: 71045; 80053; 83735; 83880; 85025; 87637; 93005; 93010; 96374; 99285-25; A9270; J1885